=== PATIENT | male | born 1975 | race Caucasian/White ===

== ENCOUNTER 2019-07-07 04:26 | Emergency (ER) | payer BC, OTHER ==
[2019-07-07] MEDS ORDERED: HYDROmorphone 0.5 MG/0.5 ML SYRINGE IVP STA (04:47)
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
--- NOTE | 2019-07-07 05:33 | XR ---
EXAMINATION TYPE: XR shoulder complete RT DATE OF EXAM: 07/07/2019 COMPARISON: NONE HISTORY: Fall. Shoulder pain. TECHNIQUE: 4 views FINDINGS: There is spurring at the glenohumeral joint. There is narrowing of the shoulder joint space . I see no fracture nor dislocation. IMPRESSION: Osteoarthritis. No fracture seen. No dislocation. Scapula Y-view fails to show a dislocat ion.
[2019-07-07] MEDS ORDERED: ETOMIDATE 2 MG/ML 10 ML VIAL IVP STA (05:36)
[2019-07-07 05:56] VITALS: RESP 18
[2019-07-07 06:44] VITALS: BP 136/78
--- NOTE | 2019-07-07 06:52 | XR ---
EXAMINATION TYPE: XR shoulder limited RT DATE OF EXAM: 07/07/2019 COMPARISON: NONE HISTORY: Post manipulation TECHNIQUE: 2 view FINDINGS: A single view of the right shoulder appears to show no fracture nor dislocation. There is s ome widening of the AC joint space. Exam is limited by this single view. IMPRESSION: Limited exam shows no sign of dislocation. There is possible ligamentous tear at the AC j oint. No change in position compared to initial exam today.
[2019-07-07 06:59] VITALS: PULSE 88; TEMP 98.6
== END 2019-07-07 07:01 | disposition home or self-care (01) ==
LOC: EC 04:26
DX: S43.001A Unspecified subluxation of right shoulder joint, initial encounter (principal); Z88.4 Allergy status to anesthetic agent; W19.XXXA Unspecified fall, initial encounter
CPT/HCPCS: 73020; 73030; 99283; 99152; 23650; 96374; J1170